=== PATIENT | male | born 1980 | race Caucasian/White ===

== ENCOUNTER → 2017-02-23 | Outpatient (CLI) | payer BC, OTHER ==
[~2017-02-23] MED LIST: ADVIL200 MG PO; COLACE100 MG PO; DECADRON1 MG PO; FLEXERIL10 MG PO; HYDROCODON-ACE1 EAC4 PO; LEVAQUIN500 MG PO; LEVEMIR FL100 UNIT/1 SUB-Q; LOPRESSOR50 MG PO; NORCO 5-325 TA1 EACH PO; NORVASC10 MG PO; NOVOLOG100 UNIT/M SUB-Q; PROMETH-CODEIN 65 ML PO; TRADJENTA5 MG PO; TYLENOL EXTRA500 MG PO; TYLENOL PM EX-1 EACH PO; ZOFRAN4 MG PO
== END | disposition disaster alternative care site (69) ==
LOC: GRAD 10:35
DX: G91.1 Obstructive hydrocephalus (principal); R51 Headache; Z98.2 Presence of cerebrospinal fluid drainage device